=== PATIENT | male | born 1960 | race Caucasian/White ===

== ENCOUNTER 2024-06-18 21:55 | Observation (INO) ==
[2024-06-18] MEDS ORDERED: IOPAMIDOL 100 ML BOTTLE IV ONE (21:56)
[2024-06-18] MEDS: LORazepam 2 MG/ML VIAL IV ONE (22:20)
[2024-06-18 22:28] LABS: Basophils # (Auto) 0.04 K/mcL (0.00-0.30); Basophils % (Auto) 0.5 % (0.0-2.0); Eosinophils # (Auto) 0.38 K/mcL (0.00-0.70); Eosinophils % (Auto) 4.8 % (0.0-7.0); Hematocrit 48.9 % (40.1-51.0); Hemoglobin 16.2 g/dL (13.7-17.5); Lymphocytes # (Auto) 2.02 K/mcL (1.50-4.80); Lymphocytes % (Auto) 25.5 % (15.5-49.0); Mean Cell Volume 84.2 fL (80.0-100.0); Mean Corpuscular HGB Conc 33.1 g/dL (31.0-36.0); Mean Platelet Volume 10.8 fL (8.8-12.5); Monocytes # (Auto) 0.58 K/mcL (0.10-0.90); Monocytes % (Auto) 7.3 % (1.0-12.0); Neutrophils % (Auto) 61.8 % (38.0-78.0); Platelet Count 193 K/mcL (140-440); RBC 5.81 M/mcL (4.63-6.08); Red Cell Distribution Width 12.1 % (11.5-14.5); WBC 7.9 K/mcL (4.5-11.0)
[2024-06-18] MEDS: 0.9 % SODIUM CHLORIDE 1,000 ML IV ONE (22:32)
[2024-06-18] MEDS: levETIRAcetam 1,000 MG in 0.9 % SODIUM CHLORIDE 100 ML IV ONE (22:33)
[2024-06-18] MEDS: LORazepam 2 MG/ML VIAL ONE (22:33)
[2024-06-18 23:23] LABS: ALT/SGPT 56 U/L (<40); AST/SGOT 38 U/L (<40); Albumin 4.5 gm/dL (3.2-5.2); Albumin/Globulin Ratio 1.7 (1.0-2.3); Alkaline Phosphatase 117 U/L (39-117); Bilirubin,Total 0.4 mg/dL (0.1-1.0); Blood Urea Nitrogen 20 mg/dL (8-23); Calcium 9.9 mg/dL (8.6-10.4); Carbon Dioxide 27 mmol/L (22-30); Chloride 98 mmol/L (96-108); Globulin 2.6 gm/dL (2.2-3.7); Glomerular Filtration Rate 58; Glucose 143 mg/dL (70-105); Potassium 3.4 mmol/L (3.3-5.1); Sodium 140 mmol/L (133-145)
[2024-06-18 23:24] LABS: Alcohol, Blood < 10.1 mg/dL; Alcohol,Blood < 0.010 gm/dL (<0.010)
[2024-06-19] MEDS: ONDANSETRON 4 MG/2 ML VIAL IV ONE ×2 (01:20→04:37)
[2024-06-19] MEDS: PROCHLORPERAZINE 10 MG/2 ML VIAL IV ONE (01:48)
[2024-06-19 02:01] LABS: Amphetamine Screen,Urine None detected; Barbiturate Screen,Urine None detected; Benzodiazepines Screen,Urine None detected; Cannabinoid Screen,Urine None detected; Cocaine Screen,Urine None detected; Fentanyl, Urine Screen None Detected; Opiate Screen,Urine None detected; Oxycodone, Urine Screen None detected; Phencyclidine Screen,Urine None detected
[2024-06-19] MEDS: ACETAMINOPHEN 1,000 MG/100 ML BAG IV ONE (04:32)
[2024-06-19] MEDS: cefTRIAXone 2 GM in DEXTROSE 5% IN WATER 50 ML IV ONE (04:37)
[2024-06-19] MEDS: AZITHROMYCIN 500 MG in 0.9 % SODIUM CHLORIDE 250 ML IV ONE (05:10)
[2024-06-19] MEDS: levETIRAcetam 500 MG in 0.9 % SODIUM CHLORIDE 100 ML IV SCH (07:38)
[2024-06-19] MEDS ORDERED: DEXTROSE 31 GM ORAL.SUSP PO PRN (08:39)
[2024-06-19] MEDS ORDERED: DEXTROSE 50% 50 ML VIAL IV PRN (08:39)
[2024-06-19] MEDS ORDERED: LORazepam 2 MG/ML VIAL IV PRN (08:40)
[2024-06-19 09:16] LABS: Basophils # (Auto) 0.02 K/mcL (0.00-0.30); Basophils % (Auto) 0.2 % (0.0-2.0); Eosinophils # (Auto) 0.01 K/mcL (0.00-0.70); Eosinophils % (Auto) 0.1 % (0.0-7.0); Hematocrit 46.7 % (40.1-51.0); Hemoglobin 15.6 g/dL (13.7-17.5); Lymphocytes # (Auto) 1.33 K/mcL (1.50-4.80); Lymphocytes % (Auto) 10.6 % (15.5-49.0); Mean Cell Volume 83.1 fL (80.0-100.0); Mean Corpuscular HGB Conc 33.4 g/dL (31.0-36.0); Mean Platelet Volume 10.5 fL (8.8-12.5); Monocytes # (Auto) 0.96 K/mcL (0.10-0.90); Monocytes % (Auto) 7.6 % (1.0-12.0); Neutrophils % (Auto) 81.3 % (38.0-78.0); Platelet Count 210 K/mcL (140-440); RBC 5.62 M/mcL (4.63-6.08); Red Cell Distribution Width 12.2 % (11.5-14.5); WBC 12.6 K/mcL (4.5-11.0)
[2024-06-19 09:42] LABS: ALT/SGPT 56 U/L (<40); AST/SGOT 32 U/L (<40); Albumin 4.2 gm/dL (3.2-5.2); Albumin/Globulin Ratio 1.8 (1.0-2.3); Alkaline Phosphatase 82 U/L (39-117); Bilirubin,Direct 0.2 mg/dL (<0.3); Bilirubin,Total 0.5 mg/dL (0.1-1.0); Blood Urea Nitrogen 19 mg/dL (8-23); Calcium 9.3 mg/dL (8.6-10.4); Carbon Dioxide 28 mmol/L (22-30); Chloride 99 mmol/L (96-108); Globulin 2.4 gm/dL (2.2-3.7); Glomerular Filtration Rate 72; Glucose 126 mg/dL (70-105); Lactate Dehydrogenase 194 U/L (135-225); Phosphorous 3.1 mg/dL (2.5-4.5); Potassium 3.3 mmol/L (3.3-5.1); Sodium 142 mmol/L (133-145); Triglycerides 76 mg/dL (<150); Uric Acid 8.4 mg/dL (2.5-8.0)
[2024-06-19] MEDS ORDERED: ONDANSETRON 4 MG/2 ML VIAL IV PRN (10:02)
[2024-06-19] MEDS: INSULIN LISPRO 1 UNIT/0.01 ML UNIT SQ SCH (12:44)
[2024-06-19] MEDS: ACETAMINOPHEN 325 MG TABLET PO PRN (14:20)
[2024-06-19] MEDS: 0.9 % SODIUM CHLORIDE 10 ML SYRINGE IV SCH (17:10)
[2024-06-19] MEDS: PANTOPRAZOLE 40 MG TABLET PO SCH (17:11)
[2024-06-19] MEDS: POTASSIUM CHLORIDE 10 MEQ TABLET PO SCH (17:14)
[2024-06-19] MEDS: levETIRAcetam 500 MG TABLET PO SCH (19:13)
[2024-06-19] MEDS: TAMSULOSIN 0.4 MG CAPSULE PO SCH (20:33)
[2024-06-19] MEDS: metFORMIN 500 MG TABLET PO SCH (20:33)
[2024-06-19] MEDS: EZETIMIBE 10 MG TABLET PO SCH (20:33)
[2024-06-19] MEDS: LISINOPRIL 20 MG TABLET PO SCH (20:33)
[2024-06-19] MEDS: NAPROXEN 250 MG TABLET PO SCH (20:33)
[2024-06-19] MEDS: ENOXAPARIN 40 MG/0.4 ML SYRINGE SQ SCH (20:34)
[2024-06-19] MEDS: GABAPENTIN 300 MG CAPSULE PO SCH (20:35)
[2024-06-20 06:04] LABS: ALT/SGPT 40 U/L (<40); AST/SGOT 24 U/L (<40); Albumin 3.8 gm/dL (3.2-5.2); Albumin/Globulin Ratio 1.6 (1.0-2.3); Alkaline Phosphatase 70 U/L (39-117); Bilirubin,Direct < 0.2 mg/dL (0-0.3); Bilirubin,Total 0.6 mg/dL (0.1-1.0); Blood Urea Nitrogen 23 mg/dL (8-23); Calcium 9.4 mg/dL (8.6-10.4); Carbon Dioxide 29 mmol/L (22-30); Chloride 100 mmol/L (96-108); Globulin 2.4 gm/dL (2.2-3.7); Glomerular Filtration Rate 80; Glucose 115 mg/dL (70-105); Lactate Dehydrogenase 238 U/L (135-225); Phosphorous 2.7 mg/dL (2.5-4.5); Potassium 3.4 mmol/L (3.3-5.1); Sodium 140 mmol/L (133-145); Triglycerides 183 mg/dL (<150); Uric Acid 7.4 mg/dL (2.5-8.0)
[2024-06-20 08:14] LABS: Basophils # (Auto) 0.05 K/mcL (0.00-0.30); Basophils % (Auto) 0.6 % (0.0-2.0); Eosinophils # (Auto) 0.27 K/mcL (0.00-0.70); Eosinophils % (Auto) 3.2 % (0.0-7.0); Hematocrit 45.6 % (40.1-51.0); Lymphocytes # (Auto) 2.42 K/mcL (1.50-4.80); Lymphocytes % (Auto) 28.7 % (15.5-49.0); Mean Cell Volume 84.8 fL (80.0-100.0); Mean Corpuscular HGB Conc 32.9 g/dL (31.0-36.0); Mean Platelet Volume 11.1 fL (8.8-12.5); Monocytes % (Auto) 9.5 % (1.0-12.0); Neutrophils % (Auto) 57.8 % (38.0-78.0); Platelet Count 180 K/mcL (140-440); RBC 5.38 M/mcL (4.63-6.08); Red Cell Distribution Width 12.7 % (11.5-14.5); WBC 8.4 K/mcL (4.5-11.0)
[2024-06-20] MEDS: ATORVASTATIN 40 MG TABLET PO SCH (09:04)
[2024-06-20] MEDS: VITAMIN D3 25 MCG TABLET PO SCH (09:04)
[2024-06-20] MEDS: Empagliflozin 10 mg tablet PO SCH (09:05)
[2024-06-20] MEDS: CLOPIDOGREL 75 MG TABLET PO SCH (09:05)
[2024-06-20] MEDS: amLODIPine 10 MG TABLET PO SCH (09:05)
[2024-06-20] MEDS: cloNIDine HCL 0.1 MG TABLET PO SCH (09:05)
[2024-06-20] MEDS: CHLORTHALIDONE 25 MG TABLET PO SCH (09:05)
[2024-06-20] MEDS: POTASSIUM CHLORIDE 20 MEQ TABLET PO ONE (10:25)
[2024-06-20 11:23] VITALS: TEMP 97.1; O2SAT 95
== END 2024-06-20 11:22 | disposition home or self-care (01) ==
LOC: ICU 21:55 → ED 21:55 → ICU 06-19 09:40
PROVIDERS: ADMIT Student in an Organized Health Care Education/Training Program; ATTEND Student in an Organized Health Care Education/Training Program